=== PATIENT | female | born 1970 | race Caucasian/White ===

== ENCOUNTER 2017-08-06 21:06 | Emergency (ER) | payer BC, MEDICAID ==
[~2017-08-06] VITALS: Ht 162.6 cm; Wt 63.5 kg
[~2017-08-06 21:06] MED LIST: AMERICAINE57 GM TP; ANUSOL-HC25 MG RECTAL; CIPROFLOXACIN500 M2 ORAL; DIFLUCAN100 MG ORAL; IBUPROFEN600 MG ORAL; NKM
[2017-08-06] MEDS ORDERED: POLYTRIM OP SOL10 ML OPHTHALM (22:06)
[2017-08-06] MEDS ORDERED: KEFLEX500 MG ORAL (22:06)
--- NOTE | 2017-08-06 22:06 | Emergency Room Report ---
History of Present Illness General Chief Complaint: Eye Problems Source: Patient Present Illness HPI Is a 46-year-old female who had a rhinoplasty and eyelid surgery done yesterday evening. She came in today because of swelling to both eyelids. She went to make sure there is no infection. She was prescribed Bactrim pain medication. She also got some [id number] eyedrops at the [employer] store. Based on a translation, it appeared to be a steroid drop. Patient denies any fever or chills. Denies any nausea vomiting. Pain is well-controlled with her [place]. Allergies: Coded Allergies: TRAMADOL (Verified Allergy, Unknown, 08/07/16) Patient History Past Medical History: see triage record, old chart reviewed Past Surgical History: other Pertinent Family History: none Social History: Denies: smoking Last Menstrual Period: Jul Now: No Immunizations: other Reviewed Nursing Documentation: PMH: Agreed, PSxH: Agreed Review of Systems Eye: Denies: eye pain, blurred vision ENT: Denies: ear pain, nose congestion, throat swelling Respiratory: Denies: cough, shortness of breath Cardiovascular: Denies: chest pain, palpitations Gastrointestinal: Denies: abdominal pain, diarrhea, nausea, vomiting Musculoskeletal: Denies: back pain, joint pain Skin: Denies: rash Neurological: Denies: headache, numbness Endocrine: Denies: increased thirst, increased urine Hematologic/Lymphatic: Denies: easy bruising All Other Systems: negative except mentioned in HPI Physical Exam Vital Signs Date Time Temp Pulse Resp B/P (MAP) Pulse Ox O2 Delivery O2 Flow Rate FiO2 08/06/17 21:42 97.9 84 16 116/77 100 Room Air vitals normal Sp02 EP Interpretation: reviewed, normal General Appearance: well appearing, no apparent distress, alert Head: normocephalic, atraumatic Eyes: bilateral eye PERRL, bilateral eye EOMI, bilateral eye other - Both upper eyelids show edema. Right is more so than left. There is some ecchymosis. No proptosis. No significant erythema. No discharge. ENT: hearing grossly normal, normal pharynx Neck: full range of motion, supple, no meningismus Respiratory: chest non-tender, lungs clear, normal breath sounds Cardiovascular #1: regular rate, rhythm, no murmur Gastrointestinal: normal bowel sounds, non tender, no mass, no organomegaly, no bruit, non-distended Musculoskeletal: back normal, gait/station normal, normal range of motion Psychiatric: mood/affect normal Skin: warm/dry Medical Decision Making Diagnostic Impression: Primary Impression: Encounter for postoperative wound check ER Course Patient here for wound check. I see no obvious infection. We'll per her on antibiotics also. We'll have her followup with her plastic surgeon tomorrow morning for recheck. Last Vital Signs Date Time Temp Pulse Resp B/P (MAP) Pulse Ox O2 Delivery O2 Flow Rate FiO2 08/06/17 21:42 97.9 84 16 116/77 100 Room Air Status: unchanged Disposition: HOME, SELF-CARE Condition: Stable Scripts Cephalexin* (KEFLEX*) 500 Mg Capsule 500 MG ORAL Q6H, #28 CAP 0 Refills Prov: FABIÁN RUTH M.D. 08/06/17 Polymyxin/Trimethoprim (Polytrim Eye Drops) 10 Ml Drops 2 DROP OPHTHALM THREE TIMES A DAY, #1 EA Instill in affected eye for 7 days Prov: FABIÁN RUTH M.D. 08/06/17 Additional Instructions: Follow up with your surgeon tomorrow. Return if worse. FABIÁN RUTH M.D. Aug 06, 2017 22:06
[2017-08-06 22:15] VITALS: BP 116/77
== END 2017-08-06 22:30 | disposition home or self-care (01) ==
LOC: EMR 22:18
DX: H01.9 Unspecified inflammation of eyelid (principal); Z88.6 Allergy status to analgesic agent
CPT/HCPCS: 99284

== ENCOUNTER 2017-08-16 06:20 | Emergency (ER) | payer MEDICAID ==
[~2017-08-16] VITALS: Ht 162.6 cm; Wt 63.0 kg
[~2017-08-16 06:20] MED LIST changes: +KEFLEX500 MG ORAL; +POLYTRIM OP SOL10 ML OPHTHALM
[2017-08-16] MEDS ORDERED: RANITIDINE HCL150 M1 ORAL (06:55)
[2017-08-16] MEDS ORDERED: KEFLEX500 MG ORAL (06:55)
[2017-08-16] MEDS ORDERED: BACTRIM DS TAB1 EAC1 ORAL (06:55)
[2017-08-16 06:59] VITALS: BP 110/78
[2017-08-16] MEDS ORDERED: LORATADINE10 M2 PO (07:02)
--- NOTE | 2017-08-16 07:07 | Emergency Room Report ---
History of Present Illness General Chief Complaint: Eye Problems Source: Patient Present Illness HPI Patient presents with redness and increased infection of both upper eyelids On the patient had surgery on both eyelids Patient was seen here soon after that based on antibiotics After seeing her plastic surgeon she discontinued the antibiotics However now since Thursday she again started taking the antibiotic as she felt there was increased redness The area appeared to have improved however again she does feel that there is increased redness and some discharge starting on Thursday Denies any change in vision denies any headache denies any fevers or chills Allergies: Coded Allergies: CIPROFLOXACIN (Verified Allergy, Unknown, 08/16/17) TRAMADOL (Verified Allergy, Unknown, 08/07/16) Patient History Past Medical History: see triage record Pertinent Family History: none Last Menstrual Period: 1 week ago Now: No Reviewed Nursing Documentation: PMH: Agreed, PSxH: Agreed Nursing Documentation-PMH Past Medical History: No History, Except For Hx Cardiac Problems: No - ROBERT BLEPHAROPLASTY Review of Systems All Other Systems: negative except mentioned in HPI Physical Exam Vital Signs Date Time Temp Pulse Resp B/P (MAP) Pulse Ox O2 Delivery O2 Flow Rate FiO2 08/16/17 06:26 97.9 98 17 107/76 97 Room Air Sp02 EP Interpretation: reviewed, normal General Appearance: well appearing, no apparent distress Head: normocephalic, atraumatic Eyes: bilateral eye other - Evidence of recent surgery upper eyelid bilaterally , there is surrounding erythema no obvious fluctuance, pupils are equal reactive , extraocular mors are intact no signs of any proptosis appears to be fairly localized erythema,, ENT: normal pharynx Neck: full range of motion, supple Musculoskeletal: normal inspection Neurologic: alert, oriented x3, responsive Psychiatric: normal inspection Skin: other - As above with localized erythema, bilateral upper eyelid Lymphatic: no adenopathy Medical Decision Making Diagnostic Impression: Primary Impression: postop wound Additional Impression: Cellulitis ER Course Given the examination and presentation Consideration for local reaction and healing process for this type of surgery is considered Consideration for cellulitis and secondary infections also considered Given that the area had improved and has now again become more erythematous and swollen Patient is treated with antibiotics for possible infection And requires close followup with plastic specialty Last Vital Signs Date Time Temp Pulse Resp B/P (MAP) Pulse Ox O2 Delivery O2 Flow Rate FiO2 08/16/17 06:59 97.9 75 17 110/78 97 Room Air Status: unchanged Disposition: HOME, SELF-CARE Condition: Stable Scripts Loratadine (LORATADINE) 10 Mg Tablet 10 MG PO DAILY, #20 TAB Prov: MUKESH SORIA D.O. 08/16/17 Ranitidine Hcl (RANITIDINE HCL) 150 Mg Capsule 150 MG ORAL DAILY, #20 CAP Prov: MUKESH SORIA D.O. 08/16/17 Trimethoprim/Sulfamethoxazole 160/800* (BACTRIM DS TABLET*) 1 Each Tablet 1 TAB ORAL Q12H, #14 TAB 0 Refills Prov: MUKESH SORIA D.O. 08/16/17 Cephalexin* (KEFLEX*) 500 Mg Capsule 500 MG ORAL Q6H, #28 CAP 0 Refills Prov: MUKESH SORIA D.O. 08/16/17 Referrals: [facility],REFERRING (PCP) Patient Instructions: Wound Check, Cellulitis, [id number] Additional Instructions: Patient is provided with the discharge instructions notified to follow up with her plastic surgeon in the next one day otherwise return to the er with any worsening symptoms. Please note that this report is being documented using [employer] technology. This can lead to erroneous entry secondary to incorrect interpretation by the dictating instrument. MUKESH SORIA D.O. Aug 16, 2017 07:07
[2017-08-16 07:14] VITALS: BP 110/78
== END 2017-08-16 07:14 | disposition home or self-care (01) ==
LOC: EMR 06:38
DX: T81.4XXA Infection following a procedure, initial encounter (principal); H00.031 Abscess of right upper eyelid; H00.034 Abscess of left upper eyelid
CPT/HCPCS: 99283